=== PATIENT | male | born 1990 | race Caucasian/White ===

== ENCOUNTER 2018-02-22 12:07 | Emergency (ER) | payer SELFPAY ==
[~2018-02-22] VITALS: Ht 189.2 cm; Wt 70.1 kg
[~2018-02-22 12:07] MED LIST: ABX; GABA300C10 PO; HYDR-3240 PO; HYDR-3241; MELO15TA24; MUSCLE RELAXANT; ONDA4TAB7 PO
[2018-02-22 12:10] VITALS: BP 126/91
[2018-02-22] MEDS ORDERED: HYDROcodone/APAP 5/325 TABLET PO ONE (12:30)
[2018-02-22] MEDS ORDERED: HYDROcodone/APAP 5/325 TABLET ONE (12:44)
== END 2018-02-22 13:22 | disposition home or self-care (01) ==
LOC: ED 13:16
DX: S86.912A Strain of unspecified muscle(s) and tendon(s) at lower leg level, left leg, initial encounter (principal); F17.200 Nicotine dependence, unspecified, uncomplicated; X58.XXXA Exposure to other specified factors, initial encounter; Y93.51 Activity, roller skating (inline) and skateboarding; Y92.89 Other specified places as the place of occurrence of the external cause; Y99.8 Other external cause status
CPT/HCPCS: 99284

== ENCOUNTER 2018-10-24 18:17 | Emergency (ER) | payer SELFPAY ==
[~2018-10-24] VITALS: Ht 188 cm; Wt 65.0 kg
[2018-10-24 18:37] VITALS: BP 112/71
[2018-10-24] MEDS ORDERED: HYDROcodone/APAP 5/325 TABLET PO STA (19:22)
[2018-10-24] MEDS ORDERED: HYDROcodone/APAP 5/325 TABLET ONE (19:31)
== END 2018-10-24 19:41 | disposition home or self-care (01) ==
LOC: ED 19:30
DX: S43.51XA Sprain of right acromioclavicular joint, initial encounter (principal); F17.200 Nicotine dependence, unspecified, uncomplicated; W18.30XA Fall on same level, unspecified, initial encounter; Y93.79 Activity, other specified sports and athletics; Y92.410 Unspecified street and highway as the place of occurrence of the external cause; Y99.8 Other external cause status
CPT/HCPCS: 99283

== ENCOUNTER 2018-12-31 12:06 | Emergency (ER) | payer MEDICAID ==
[~2018-12-31] VITALS: Ht 188 cm; Wt 65.3 kg
[2018-12-31 12:15] VITALS: BP 99/62
--- NOTE | 2018-12-31 14:02 | NUR ---
CALLED FOR ROOM NO ANSWER
--- NOTE | 2018-12-31 14:23 | NUR ---
CALLED FOR ROOM, NO ANSWER
== END 2018-12-31 14:24 | disposition left against medical advice (07) ==
LOC: ED 14:10
DX: T63.481A Toxic effect of venom of other arthropod, accidental (unintentional), initial encounter (principal); Z53.21 Procedure and treatment not carried out due to patient leaving prior to being seen by health care provider; Y93.89 Activity, other specified; Y92.89 Other specified places as the place of occurrence of the external cause; Y99.8 Other external cause status

== ENCOUNTER 2019-07-29 15:50 | Emergency (ER) | payer MEDICAID ==
[~2019-07-29] VITALS: Ht 188 cm; Wt 69.9 kg
[2019-07-29 16:12] VITALS: BP 115/51
[2019-07-29] MEDS ORDERED: CYCLOBENZAPRINE 10 MG TABLET ONE (16:43)
[2019-07-29] MEDS ORDERED: CYCLOBENZAPRINE 10 MG TABLET PO ONE (17:00)
== END 2019-07-29 17:27 | disposition home or self-care (01) ==
LOC: ED 17:08
DX: S39.012A Strain of muscle, fascia and tendon of lower back, initial encounter (principal); M54.42 Lumbago with sciatica, left side; F17.200 Nicotine dependence, unspecified, uncomplicated; X58.XXXA Exposure to other specified factors, initial encounter; Y93.89 Activity, other specified; Y92.89 Other specified places as the place of occurrence of the external cause; Y99.8 Other external cause status
CPT/HCPCS: 99283